=== PATIENT | male | born 1970 | race Caucasian/White ===

== ENCOUNTER 2019-02-27 01:29 | Emergency (ER) | payer MEDICARE, OTHER ==
[2019-02-27] MEDS ORDERED: KETOROLAC TROMETHAMINE 60 MG/2 ML VIAL IM ONE (02:24)
[2019-02-27] MEDS ORDERED: ORPHENADRINE CITRATE 60 MG/2 ML ML IM ONE (02:25)
--- NOTE | 2019-02-27 02:25 | ED Physician Documentation ---
Hip Injury/Pain - HISTORIAN Historian: patient - HPI Stated Complaint: left hip pain Chief Complaint: Hip Pain Onset: other (Tuesday night) Context: no injury Symptoms Prior to Fall: none Other Injuries: none Further Comments: yes (48 year old male brought in from [facility] with left hip pain. Patient has MR - is requesting to go to [place]. Patient denies any fall or injury. Staff denies any fall or injury. Patient recently started dialysis and moved to [facility]. Patient is unable to contribute to his ROS or HPI, first visit to [facility].) - ROS CONST: no problems - PAST HX Cardiac Disease: CHF, A-Fib PE Risk Factors: hypertension Other History: diabetes Type 2, kidney failure (ESRD - on dialysis, ), other (Dialysis - M, W, F; constipation, HLD, insomnia, ) Allergies/Adverse Reactions: Allergies Allergy/AdvReac Type Severity Reaction Status Date / Time amoxicillin Allergy Itchy Skin Verified 02/27/19 02:20 ciprofloxacin [From Cipro] Allergy Itchy Skin Verified 02/27/19 02:20 Home Medications: Ambulatory Orders Medication Instructions Recorded Acetaminophen [Tylenol] 2 tab PO Q4 PRN 02/27/19 Alendronate Sodium [Fosamax] 70 mg PO WEEK 02/27/19 Aspirin [Adult Low Dose Aspirin EC] 81 mg PO DAILY 02/27/19 Carvedilol [Coreg] 1 tab PO BID 02/27/19 Clonidine HCl [Catapres] 1 tab PO TID 02/27/19 Diltiazem HCl [Diltiazem 24Hr ER 1 cap PO DAILY 02/27/19 (Cd)] Docusate Sodium [Colace] 1 cap PO DAILY 02/27/19 Finasteride [Proscar] 1 tab PO DAILY 02/27/19 Furosemide [Lasix] 1 tab PO DAILY 02/27/19 Insulin Glargine,Hum.rec.anlog 22 unit SQ HS 02/27/19 [Basaglar Kwikpen U-100] Insulin Lispro [Admelog] 8 unit SQ ACBL 02/27/19 Insulin Lispro [Admelog] 10 unit SQ ACS 02/27/19 Melatonin/Pyridoxine [Melatonin 5 1 tab PO DAILY 02/27/19 mg Tablet] Mycophenolate Sodium [Mycophenolic 1 tab PO BID 02/27/19 Acid] Paricalcitol 1 cap PO [id number] 02/27/19 Paroxetine HCl 1 tab PO DAILY 02/27/19 Pnv No.95/Ferrous Fum/Folic AC 1 tab PO DAILY 02/27/19 [ Vitamin Tablet] Prednisone 1 tab PO DAILY 02/27/19 Simvastatin [Zocor] 1 tab PO HS 02/27/19 Tacrolimus [Prograf] 1 cap PO Q12 02/27/19 Tamsulosin HCl 1 cap PO DAILY 02/27/19 - SOCIAL HX Smoking History: non-smoker - FAMILY HX Family History: No - VITAL SIGNS Vital Signs: Vital Signs Temp Pulse Resp BP Pulse Ox 98.9 F 57 L 18 199/96 100 02/27/19 01:30 02/27/19 01:30 02/27/19 01:30 02/27/19 01:30 02/27/19 01:30 - REVIEWED ASSESSMENTS Nursing Assessment Reviewed: Yes Vitals Reviewed: Yes Progress - Progress Progress: Patient is his own person. No family present. Patient sent to ER for evaluation by his PCP. There is no fracture or dislocation per left hip and pelvis films. Patient was medicated for pain in the ER. ED Results Lab/Radiology - Orders Orders: ED Orders Category Date Time Status LT HIP 2VIEW COMPLETE [RAD] Stat Exams 02/27/19 Ordered PELVIS AP 1 OR 2 VIEWS [RAD] Routine Exams 02/27/19 Ordered Butorphanol Tartrate [Stadol] Med 02/27/19 02:27 Discontinued 1 mg IM NOW ONE Ketorolac Tromethamine [Toradol] Med 02/27/19 02:24 Discontinued 60 mg IM NOW ONE Orphenadrine Citrate [Norflex] Med 02/27/19 02:25 Discontinued 60 mg IM NOW ONE Hip Injury/Pain Physical Exam - EXAM General Appearance: anxious (agitated) Extremities: nml ROM, no pedal edema, no obvious injury, no deformity of knee, nml tendon exam, hip tenderness, other (left hip and femur with no deformity, ecchymosis, abrasion, or wound. There is no shortening or rotation. Patient is able to flex and extend hip. C/O pain in proximal femur area). No: shortening of leg, external rotation of leg, hip pain on leg movement EENT: eye inspection normal, DEBBIE Respiratory: chest non-tender, breath sounds nml CVS: reg rate & rhythm, heart sounds normal, equal pulses, no murmur, no gallop, no JVD, no friction rub, 24 Abdomen: non-tender, no organomegaly, nml bowel sounds, no distention Skin: normal color, warm/dry, NR, INT, PAL Neuro/Psych: neuro grossly intact, other (mental retardation. Oriented to person and place. At his baseline per [facility] staff) Discharge Clincal Impression: Left hip pain Referrals: Gerardo Ray MD [Primary Care Provider] - 2 Days Additional Instructions: Continue all current treatments and medications. Condition: Stable Disposition: HOME, SELF-CARE Decision to Admit: NO Decision Time: 02:45
[2019-02-27] MEDS ORDERED: BUTORPHANOL TARTRATE 1 MG/ML VIAL IM ONE (02:27)
[2019-02-27 03:00] VITALS: BP 169/80
--- NOTE | 2019-03-01 10:07 | Diagnostic Imaging Report ---
CHEPE ALLEN (PLAY WRITER) - ER [facility] [address] [address] Report Submission Date: Feb 27, 2019 2:07:47 AM CDT Patient Study Name: ALICIA HINKLE Date: Feb 27, 2019 1:39:23 AM CDT Modality Type: DX Gender: M Description: PELVIS AP 1 OR 2 VIEWS : 66 Institution: [facility] Physician: CHEPE ALLEN (PLAY WRITER) - ER One-view pelvis Clinical history: Left hip pain. Findings: Examination pelvis and single AP view demonstrates postoperative changes with multiple surgical clips in the pelvis and right lower quadrant. Vascular calcification is evident. Sacroiliac joints are symmetric. Impression: 1. No fracture. 2. Extensive vascular calcification. Electronically signed on Feb 27, 2019 2:07:47 AM CDT by: Pradip CHILDERS
--- NOTE | 2019-03-01 10:07 | Diagnostic Imaging Report ---
CHEPE ALLEN (RETAIL PHARMACIST) - ER [facility] [address] [address] Report Submission Date: Feb 27, 2019 2:08:10 AM CDT Patient Study Name: ALICIA HINKLE Date: Feb 27, 2019 1:39:23 AM CDT Modality Type: DX Gender: M Description: LT HIP 2VIEW COMPLETE : 66 Institution: [facility] Physician: CHEPE ALLEN (RETAIL PHARMACIST) - ER Two views of the left hip Clinical history: Pain. Findings: Examination left hip in AP and frog-leg lateral views fails to demonstrate evidence of fracture, dislocation or other bone or joint pathology. Electronically signed on Feb 27, 2019 2:08:10 AM CDT by: Pradip CHILDERS
== END 2019-02-27 03:00 | disposition home or self-care (01) ==
LOC: ED 01:29
DX: M25.552 Pain in left hip (principal)
CPT/HCPCS: 72170; 73502; 96372; 99282; 99283; J1885; J2360

== ENCOUNTER 2019-03-31 11:45 | Emergency (ER) | payer MEDICARE, OTHER ==
[2019-03-31] MEDS ORDERED: ONDANSETRON HCL 4 MG TAB.RAPDIS ONE (11:50)
== END 2019-03-31 13:48 ==
LOC: ED 11:45
DX: E16.2 Hypoglycemia, unspecified (principal)
CPT/HCPCS: 99282; A9270; S1016

== ENCOUNTER 2019-04-09 08:32 | Outpatient (CLI) | payer MEDICARE, OTHER ==
--- NOTE | 2019-04-09 10:56 | Diagnostic Imaging Report ---
PATIENT MR#: [id number] PATIENT PATIENT NAME: ALICIA HINKLE DATE OF : 1970 REFERRING PHYSICIAN: Citlalli Julio EXAM DATE: 04/09/2019 ACCESSION NUMBER: [id number] EXAM DESCRIPTION: CT BRAIN W/O CONTRAST Examination: CT head without contrast History: WORSENING HEADACHES Comparison exam: None available Technique: Noncontrast head CT protocol. Findings: Ventricles and sulci are prominent. Cerebrocerebellar parenchyma demonstrates periventricul ar low attenuation consistent with small vessel disease. No evidence for parenchymal hemorrhage. No evidence for mass or mass effect. No midline shift. No extra axial fluid collections. Partial visualization of the paranasal sinuses, mast oid air cells, orbits, skull and scalp without gross irregularity. Streak artifact from dental hardware. Impression: Age related changes. No acute parenchymal process. No hemorrhage. Read by: Dr. Vazquez Michael Transcribed by: Transcribed Date: Electronically signed by: Dr. Vazquez Michael Date signed: 04/09/2019 10:55:53 AM
--- NOTE | 2019-04-09 11:04 | Diagnostic Imaging Report ---
PATIENT MR#: [id number] PATIENT PATIENT NAME: ALICIA HINKLE DATE OF : 1970 REFERRING PHYSICIAN: Citlalli Julio EXAM DATE: 04/09/2019 ACCESSION NUMBER: [id number] EXAM DESCRIPTION: US ABDOMEN COMPLETE Ultrasoundabdomen complete Indication: Right upper quadrant abdominal pain. Left nephrectomy with right renal transplant. Findings: Ultrasound without prior shows liver to be normal in size and contour. There is no intrahepatic duct dilation. The pancreas is not well visualized. Gallstones are present. The spleen measures 14.17 x 6.72 x 7.03 cm. The right renal transplant measures 12.35 x 5.99 x 5.54 cm. There is a presumed cyst within the right kidney measurin g at least 1.0 x 1.2 cm. The left kidney is not visualized. There is debris within the urinary bladder. Visualized abd ominal aorta is unremarkable. The inferior vena cava is not visualized. The common bile duct measures 0.32 cm. Impression: Right renal cyst Nonvisualized eft kidney Cholelithiasis debris with in urinary bladder. Read by: Dr. Ray Arriola Transcribed by: Transcribed Date: Electronically signed by: Dr. Ray Arriola Date signed: 04/09/2019 11:03:53 AM
== END 2019-04-09 08:42 ==
LOC: RAD 08:32
PROVIDERS: ATTEND Nurse Practitioner Family
DX: R10.11 Right upper quadrant pain (principal); R11.14 Bilious vomiting; R51 Headache
CPT/HCPCS: 70450; 76700